=== PATIENT | male | born 1955 | race Caucasian/White ===

== ENCOUNTER → 2016-07-03 | Outpatient (CLI) | payer MEDICARE, MEDICAID ==
[~2016-07-03] MED LIST: ACYCLOVIR800 MG PO; ASPIRIN325 M1 PO; ATORVASTATIN CA40 MG PO; AUGMENTIN1 TA2 PO; BACTRIM DS 8001 TA1 PO; BENAZEPRIL HYDR40 MG PO; BENZOPRIL PO; CHLORTHALIDONE50 MG PO; CLOPIDOGREL75 M2 PO; CYCLOBENZ5 MG PO; DOXYCYCLINE HY100 M4 PO; GABAPENTIN300 MG PO; HYDROCODONE-APA1 TA1 PO; HYDROCODONE1 TABLET PO; LISINOPRIL HCTZ1 TAB PO; MEDROL 4MG. DOSE4 MG PO; MERREM IV1 GM IV; METOPROLOL25 MG PO; PERCOCET 5/3251 EACH PO; ROBITUSSIN120 ML/BOT PO; TALWIN NX1 TAB PO; TAMIFLU75 MG PO; VICODIN 7.5/501 EACH PO
--- NOTE | 2016-07-03 10:16 | CARDIOVASCULAR REPORT ---
"Cerebrovascular Exam Indications: TIA 434.91. CVA 436. PVD 433.9. 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 IMPRESSIONS 1. The bilateral vertebral arteries are patent with normal antegrade flow. 2. Study suggests 70-99% stenosis involving the left internal carotid artery. Disease progression from the study of 08-Sep-2014. 3. Study suggests 100% occlusion involving the right internal carotid artery. No change from the study of 09-Oct-2014. 4. Suggest further testing. History: Transient ischemic attack. Stroke. Risk factors: Hypertension. Labs, prior tests, procedures, and surgery: Bilateral lower extremity amputation (2008). Labs, prior tests, procedures, and surgery: Bilateral lower extremity amputation (2009). Carotid duplex study. Complete study and Doppler flow study including spectral analysis, color and stoddard scale imaging. Height: Height: 91.4cm. Height: 36in. Weight: Weight: 59.9kg. Weight: 131.7lb. Body mass index: BMI: 71.6kg/m^2. Body surface area: BSA: 1.31m^2. Location: Vascular laboratory. Patient status: Outpatient. Tables: Arterial flow: + +--------+--------+ |Location |V sys |V ed | + +--------+--------+ |Right CCA - proximal|98.2cm/s|25.1cm/s| + +--------+--------+ |Right CCA - distal |122cm/s |24.4cm/s| + +--------+--------+ |Right ECA |164cm/s |--------| + +--------+--------+ |Left CCA - proximal |67.7cm/s|21.6cm/s| + +--------+--------+ |Left CCA - distal |67cm/s |19.6cm/s| + +--------+--------+ |Left ECA |205cm/s |--------| + +--------+--------+ |Left ICA - proximal |52.5cm/s|14.7cm/s| + +--------+--------+ |Left ICA - mid |66.8cm/s|14.7cm/s| + +--------+--------+ |Left ICA - distal |142cm/s |39.3cm/s| + +--------+--------+ |Left vertebral |66.8cm/s|--------| + +--------+--------+ Velocity ratios: + + + + | |Left, V sys|Left, V ed| + + + + |Max ICA/dist CCA|2.12 |2.01 | + + + + (Report amended ) Electronically signed by: Gabe London [id number]"
--- NOTE | 2016-07-03 11:43 | RADIOLOGY REPORT PS360 ---
US RUQ-(ABD LTD)1ORGAN/QUAD/FU HISTORY: ABD PAIN, NAUSEA COMPARISON: None FINDINGS: PANCREAS: Unremarkable. No obvious mass or abnormal fluid collection. No ductal dilatation LIVER: No focal liver lesions demonstrated. Homogeneous echogenicity. No intrahepatic biliary ductal dilatation evident RIGHT KIDNEY: Unremarkable. Normal size and echogenicity. No hydronephrosis GALLBLADDER: No gallstones, gallbladder wall thickening, pericholecystic fluid, or biliary dilatation. IMPRESSION: Negative gallbladder/right upper quadrant ultrasound
== END ==
LOC: RAD 08:38
DX: R10.9 Unspecified abdominal pain (principal); R11.0 Nausea; G45.9 Transient cerebral ischemic attack, unspecified; R09.89 Other specified symptoms and signs involving the circulatory and respiratory systems

== ENCOUNTER → 2016-07-05 | Outpatient (CLI) | payer MEDICARE, MEDICAID ==
[2016-07-05 10:53] LABS: BUN 11 mg/dL (7-18); GFR (ESTIMATED) 86 ML/MIN (>60)
--- NOTE | 2016-07-06 10:21 | RADIOLOGY REPORT PS360 ---
CTA-NECK INDICATION: Carotid stenosis, abnormal duplex of the carotid arteries, many strokes. CAROTID STENOSIS COMPARISON: 11/02/2014 TECHNIQUE: Axial images are obtained following the bolus administration 100 mL of Isovue-370 contrast. Sagittal and coronal reformatted images are reviewed as well. 3-D reformats and curved planar reformatted images also reviewed. FINDINGS: Left carotid: Significant calcific plaque is present in the bulb and proximal left ICA. There is 50 percent stenosis of the proximal left ICA by NASCET criteria. This is not significant changed Right carotid: Prominent calcific plaque is present at the distal common carotid and bulb. There is 50% stenosis of the proximal right ICA. This is similar when compared to the previous exam. Atheromatous changes with calcification involves the cavernous and sellar portions of the ICAs bilaterally. Once again there is noted high-grade stenosis of the ostium of the left vertebral artery by approximately 60% similar to the previous exam. There is occlusion of the right vertebral artery. Nonvascular findings: There is an 11 mm cystic area along the posterior aspect of the base of the time. This is superficial. Correlation with direct visualization recommended. IMPRESSION: 1. Prominent calcific plaque involving the common carotids and bulbs and proximal ICAs bilaterally. 2. 50% stenosis of the proximal ICAs bilaterally not significantly changed. 3. Occluded right vertebral artery. High-grade stenosis left vertebral artery unchanged. 4. 11 mm cystic appearing lesion along the base of the tongue posteriorly. This is superficial and of questionable clinical significance. Direct visualization is recommended IMPRESSION:
== END ==
LOC: RAD 10:35
PROVIDERS: Thoracic Surgery (Cardiothoracic Vascular Surgery)
DX: I65.23 Occlusion and stenosis of bilateral carotid arteries (principal)
CPT/HCPCS: Q9967

== ENCOUNTER 2017-03-11 12:22 | Emergency (ER) | payer MEDICARE, MEDICAID ==
[~2017-03-11] VITALS: Ht 162.6 cm; Wt 59.0 kg
[2017-03-11] MEDS ORDERED: FLEXERIL10 MG PO (12:52)
[2017-03-11] MEDS ORDERED: TRAMADOL 50MG T50 M1 PO (12:53)
--- NOTE | 2017-03-11 13:04 | Urgent Treatment Center Report ---
History of Present Issue Date/Time Seen by Provider 03/11/17 1304 Visit Reason Pt arrived:Wheelchair Presenting Problem:PT REPORTS DIARRHEA X1 DAYS WITH LOWER ABD CRAMPING WITH NEEDING TO HAVE BM. WATERY DIARRHEA FOR 2 DAYS, TOOK 2 DOSES OF IMMODIUM TODAY. Location if Accident: Onset of symptoms date/time:03/10/17/ or onset unknown for:MEDICAL HX UNKNOWN Have you (or family members/close friends) recently traveled outside the [place]? N If Yes, where/when: Have you had exposure to infectious disease within the past month? TB? Other? Specify: Here w/ c/o diarrhea. Started yesterday. Approx 6 times today. Watery, light brown. No blood or mucous. Denies abdominal pain but then reports cramping immediatley before BMs then feels ok after. Normal appetite without nausea or vomiting "but everything I have eaten or drank is going straight through". Denies any recent travel or recent antibiotic use. Source patient, family Exam Limitations no limitations ALLERGIES Coded Allergies: sulfamethoxazole (From Bactrim) (Intermediate, 07/05/16) trimethoprim (From Bactrim) (Intermediate, 07/05/16) zolpidem (From Ambien) (PT STATES HE GOES CRAZY ON THIS MED 07/05/16) Home Medications Reported Medications Aspirin 81 MG PO DAILY Meropenem (Merrem) 1 GM IV EVERY 8 HOURS Metoprolol Tartrate (Metoprolol) 25 MG PO BID CLOPIDOGREL BISULFATE (Clopidogrel) 75 MG PO DAILY #30 Atorvastatin Calcium 40 MG PO DAILY #30 Gabapentin (Gabapentin 300MG) 400 MG PO TID Cyclobenzaprine Hcl (Flexeril) 5 MG PO BID TRAMADOL HCL (Tramadol) 50 MG PO QHS Benazepril Hcl (Benazepril HCl) 40 MG PO DAILY 30 Days History Medical History General CAD? No Angina: No [place]: No Hypertension? Yes Hyperlipidemia? No CHF? No DVT? No PE? No COPD? Yes Asthma? Yes Anemia? No GERD? No Gastric ulcers? No GI Bleed? No Hernia? No Thyroid Problems? No Hypothyroidism? No CVA? Yes Seizures? No Diabetes? No Insulin Dependent: No Insulin Pump: No Home FSBS? No Renal Insuffiency? No UTI? No Stones? No BPH? No GB Disease: No Nephritic Syndrome? No Asplenia? No Hepatitis? No Sickle Cell Disease? No Arthritis? No Migraines? No Cataracts? No Glaucoma? No MRSA? No HIV? No TB? No Anxiety? No Depression? No Cancer? No More? No Immunization HX DT/Tetanus 5-10 YRS Surgical Hx Previous Surgery?Y CYST REMOVED FROM GROIN X3 FEM POP RIGHT LEG X 2 GRAFT TO LEFT LEG ARTERY RIGHT BKA X 2 LT BKA Family History Family HX Diabetes No CAD Yes Hypertension Yes Hyperlipidemia Yes Cancer No TB No Social History Smoking Hx Smoker: Former Smoker Tobacco: No Packs/day < 1 Pack Alcohol Alcohol: No Review of Systems All Other Systems Reviewed and Negative Constitutional denies chills, denies fever, denies malaise Gastrointestinal see HPI Genitourinary denies: dysuria, frequency. Musculoskeletal denies other (no aches) Skin denies change in color, denies lesions Psychiatric/Neurological denies headache Physical Exam Vital Signs Vital Signs Date Time Temp Pulse Resp B/P Pulse O2 O2 Flow FiO2 Ox Delivery Rate 03/11 1249 97.8 92 18 135/73 96 03/11 1227 97.8 92 18 135/73 96 General Appearance no apparent distress, golden LE AKA, in w/c Ear, Nose, Throat normal pharynx Respiratory Status No: respiratory distress. Cardiovascular no peripheral edema Gastrointestinal non tender, soft, no organomegaly, no pulsatile mass, abnormal bowel sounds (hyperactive), no guarding, no rebound Back no CVA tenderness Neurologic alert, oriented x 3 Skin normal color, warm/dry Medical Decision Making LABS/Meds/Orders Pt receiving controlled substance in ED? No Departure Departure Time of Disposition 1324 Disposition DC Home or Self Care(routine) Clinical Impression Primary Impression: Diarrhea Qualifiers: Diarrhea type: unspecified type Qualified Code: R19.7 - Diarrhea, unspecified Condition STABLE Referrals Khalif VALENTINE,Nathaniel (Family) IMMEDIATELY for new or worsening symptoms OR no noticeable improvement over the next 48 hours. Patient Instructions DI for Viral Gastroenteritis -- Adult Additional Instructions * Monitor Temp. FU if fever develops. * Follow up immediately for new or worsening symptoms OR no noticeable improvement over the next 48 hours. * Increase fluids. Water, gatorade, powerade, juice OR pedialyte with limited formula/dairy in children. * No food is ok as long as you or your child is drinking. Once ready to eat, start bland. bananas, rice, applesauce, toast as they can help bulk up stool * If this is viral, Contagious until no diarrhea, vomiting, fever x 24 hours without medication * Avoid anti-diarrheals unless told otherwise. Best to let the virus run its course. * Return stool as directed since you are unable to provide specimen in clinic. Will take approx 2 hours to results. Call [facility] 2 hours after you drop it off to inquire on results. Our number is [phone]. If after 9pm tonight, follow up with Dr. pizano Discharge Counseling Counseled pt/family regarding diagnosis, home care, follow up needs at [phone]
[2017-03-11 13:31] VITALS: BP 135/73
== END 2017-03-11 13:35 | disposition home or self-care (01) ==
LOC: ER 12:22 → UTC 12:37 → ER 12:37 → UTC 13:35
DX: R19.7 Diarrhea, unspecified (principal); I10 Essential (primary) hypertension; J44.9 Chronic obstructive pulmonary disease, unspecified; Z87.891 Personal history of nicotine dependence; Z79.02 Long term (current) use of antithrombotics/antiplatelets; Z79.82 Long term (current) use of aspirin; Z79.899 Other long term (current) drug therapy

== ENCOUNTER 2017-05-10 09:58 | Emergency (ER) | payer MEDICARE, MEDICAID ==
[~2017-05-10] VITALS: Ht 152.4 cm; Wt 59.0 kg
[~2017-05-10 09:58] MED LIST changes: +FLEXERIL10 MG PO; +TRAMADOL 50MG T50 M1 PO
[2017-05-10] MEDS ORDERED: TRAZODONE50 MG PO (10:28)
--- OUTSIDE RECORDS SUMMARY | 2017-05-10 10:36 | External Medical Summary Rpt | CCD ---
Author Author , FAUSTINO HARMON Address Unknown Phone [email or web address] Care Team Providers Care Herb Doctor Name Role Phone Peter Farmer MD, Unavailable Unavailable Peter Farmer MD Purpose Continuity of Care Document - 09-20-2012 through 2016 Problems Code Diagnosis DOS Provider Status 729.81 729.81 09-20-2012 Werner SWELLING OF [facility] V49.75 V49.75 09-20-2012 [place] [facility]OW [facility] STATUS Allergies, Adverse Reactions, Alerts Type Drug Allergy Adverse Reaction to Substance Substance Reaction Severity Trimethoprim Unknown Intermediate Sulfamethoxazole Unknown Intermediate Zolpidem PT STATES HE GOES Unknown CRAZY ON THIS MED. Medications Na ND Rx Da Fi Fi Am Da Di Ph RX Ph St me C No te ll ll ou ys ag ar # ys at rm s nt no ma ic us Or Da si cy ia de te s n re d CE 00 03 0 No FT 78 -2 RI 19 3- Lo AX 32 20 ng ON 89 13 er E 5 1 Ac GM ti ve AL LI 63 03 0 No DO 32 -2 CA 30 3- Lo IN 20 20 ng E 11 13 er HC 0 L Ac 1% ti ve AL BU 55 03 0 No TO 39 -2 RP 00 3- Lo JULIAN 18 20 ng NO 40 13 er L 1 2 Ac MG ti /M ve L AL Vital Signs 10-11-2012 15:08 Name Value Interpretat Reference Comment ion Range Body 98.9 [degF] Temperature BP 78 mm[Hg] Diastolic BP Systolic 157 mm[Hg] Heart 92 /min Rate/Pulse O2% 96 % Respiratory 20 /min Rate 10-11-2012 15:07 Name Value Interpretat Reference Comment ion Range Body 98.9 [degF] Temperature BP 78 mm[Hg] Diastolic BP Systolic 157 mm[Hg] Heart 92 /min Rate/Pulse O2% 96 % Respiratory 20 /min Rate 09-20-2012 15:24 Name Value Interpretat Reference Comment ion Range BP 87 mm[Hg] Diastolic BP Systolic 157 mm[Hg] Heart 66 /min Rate/Pulse O2% 98 % Respiratory 20 /min Rate Encounters Encounter Start End Date Code Location Performer Type Date Emergency CATALINA Reynoso (ER) 3 14:39 3 15:10 [facility] Emergency CATALINA Farmer MD (ER) 3 15:01 3 15:25 [facility]
--- OUTSIDE RECORDS SUMMARY | 2017-05-10 10:36 | External Medical Summary Rpt | CCD ---
Author Author , FAUSTINO HARMON Address Unknown Phone [email or web address] Care Team Providers Care Divorce Mediator Name Role Phone Peter Farmer MD, Unavailable Unavailable Peter Farmer MD Purpose Continuity of Care Document - 09-20-2012 through 2016 Problems Code Diagnosis DOS Provider Status 729.81 729.81 09-20-2012 Werner SWELLING OF [facility] V49.75 V49.75 09-20-2012 [place] BELOW KNEE [facility] STATUS Allergies, Adverse Reactions, Alerts Type [...] CATALINA Reynoso (ER) 3 14:39 3 15:10 [facility] Emergency CATALINA Farmer MD (ER) 3 15:01 3 15:25 [facility]
--- OUTSIDE RECORDS SUMMARY | 2017-05-10 10:37 | External Medical Summary Rpt ---
Author Author FAUSTINO Silvestre, FAUSTINO Silvestre Organization [employer] Address Unknown Phone Unavailable
--- OUTSIDE RECORDS SUMMARY | 2017-05-10 10:37 | External Medical Summary Rpt | CCD ---
Author Author , FAUSTINO Organization [employer] Address Unknown Phone [email or web address] Immunization Name Date Rout CVX Reac Dose Comm Prov Is Faci e tion ent ider Refu lity Give sed n Infl 10-0 150 999 Hist D203 No D203 uenz 3-20 oric 45 45 a 16 al Quad Info Inj rmat ion - Sour ce Unsp ecif ied
--- OUTSIDE RECORDS SUMMARY | 2017-05-10 10:37 | External Medical Summary Rpt | CCD ---
Author Author [employer] Organization [employer] Address Unknown Phone Unavailable Purpose Continuity of Care Document - through 2016
--- OUTSIDE RECORDS SUMMARY | 2017-05-10 10:37 | External Medical Summary Rpt | CCD ---
Author Author , FAUSTINO Organization [employer] Address Unknown Phone [email or web address] Immunization Name Date Rout CVX Reac Dose Comm Prov Is Faci e tion ent ider Refu lity Give sed n Infl 10-0 150 999 Hist D203 No D203 uenz 3-20 oric 45 45 a 16 al Quad Info Inj rmat ion - Sour ce Unsp ecif ied
[2017-05-10] MEDS ORDERED: FLONASE 50 MCG16 GM (11:32)
[2017-05-10] MEDS ORDERED: BENZONATATE200 MG PO (11:32)
--- NOTE | 2017-05-10 11:33 | Urgent Treatment Center Report ---
History of Present Issue Date/Time Seen by Provider 05/10/17 1123 Visit Reason Pt arrived:Wheelchair Presenting Problem:HEAD COLD, RUNNY NOSE,SNEEZING, PAIN IN RIBS WHEN HE COUGHS NOW FOR 2 DAYS. BEEN TAKING CORICIDIN HP COUGH SYRUP AND HASN'T HELPED. Location if Accident: Onset of symptoms date/time:05/0802/18/800 or onset unknown for: Have you (or family members/close friends) recently traveled outside the [place]? N If Yes, where/when: Have you had exposure to infectious disease within the past month? N TB? Other? Specify: pt was waiting to be seen in ER bed 9 when he found out about UTC. He had not been seen yet in ER as he was still waiting to be seen. UTC was explained to pt and pt requested to transfer to [facility]. c/o "I have a cold". Rhinorrhea, nasal congestion, scratchy throat, dry cough x 2-3 days. typically improves w/ coricidin but hasn't this time. Denies fever, chills, SOA, wheezing. Ribs hurts at times "just from coughing so much". no pain with breathing or movement. w/ similiar symptoms. Source patient Exam Limitations no limitations ALLERGIES Coded Allergies: sulfamethoxazole (From Bactrim) (Intermediate, 07/05/16) trimethoprim (From Bactrim) (Intermediate, 07/05/16) zolpidem (From Ambien) (PT STATES HE GOES CRAZY ON THIS MED 07/05/16) Home Medications Reported Medications Aspirin 81 MG PO DAILY Metoprolol Tartrate (Metoprolol) 25 MG PO BID CLOPIDOGREL BISULFATE (Clopidogrel) 75 MG PO DAILY #30 Atorvastatin Calcium 40 MG PO DAILY #30 Trazodone Hcl (Trazodone HCl) 50 MG PO QPM #30 Gabapentin (Gabapentin 300MG) 400 MG PO TID Cyclobenzaprine Hcl (Flexeril) 5 MG PO BID TRAMADOL HCL (Tramadol) 50 MG PO QHS Benazepril Hcl (Benazepril HCl) 40 MG PO DAILY 30 Days History Medical History General CAD? No Angina: No UT: No Hypertension? Yes Hyperlipidemia? No CHF? No DVT? No PE? No COPD? Yes Asthma? Yes Anemia? No GERD? No Gastric ulcers? No GI Bleed? No Hernia? No Thyroid Problems? No Hypothyroidism? No CVA? Yes Seizures? No Diabetes? No Insulin Dependent: No Insulin Pump: No Home FSBS? No Renal Insuffiency? No UTI? No Stones? No BPH? No GB Disease: No Nephritic Syndrome? No Asplenia? No Hepatitis? No Sickle Cell Disease? No Arthritis? No Migraines? No Cataracts? No Glaucoma? No MRSA? Yes HIV? No TB? No Anxiety? No Depression? No Cancer? No More? Yes Additional hx: 2015- RIGHT BKA, 2009- LEFT BKA Immunization HX DT/Tetanus 5-10 YRS Surgical Hx Previous Surgery?Y CYST REMOVED FROM GROIN X3 FEM POP RIGHT LEG X 2 GRAFT TO LEFT LEG ARTERY RIGHT BKA X 2 LT BKA Family History Family HX Diabetes No CAD Yes Hypertension Yes Hyperlipidemia Yes Cancer No TB No Social History Smoking Hx Smoker: Former Smoker Tobacco: No Type Cigarettes Packs/day < 1 Pack Are you/the child exposed to second-hand smoke: Yes Alcohol Alcohol: No Review of Systems All Other Systems Reviewed and Negative Constitutional see HPI, denies malaise, denies weakness Eyes denies drainage ENT see HPI. denies: ear discharge, throat swelling, other (sneezing). Respiratory see HPI Cardiovascular denies chest pain, denies palpitations Gastrointestinal denies no symptoms reported Musculoskeletal denies joint pain Skin denies rash Psychiatric/Neurological denies headache Physical Exam Vital Signs Vital Signs Date Time Temp Pulse Resp B/P Pulse O2 O2 Flow FiO2 Ox Delivery Rate 05/10 1121 98.1 67 20 119/69 99 05/10 1005 98.1 67 20 119/69 99 General Appearance normal appearance (x/ golden BKA), no apparent distress Eye Exam - bilateral eye normal exam Ear, Nose, Throat normal pharynx, golden EAC and TMs normal, nasal congestion w/ clear rhinorrhea Neck non-tender, supple Respiratory Status Yes: trachea midline, chest symmetrical, non tender chest, non productive cough. No: respiratory distress, use of accessory muscles, pain on inspiration, pain on expiration, productive cough. Lung Sounds anterior: lungs clear. posterior: lungs clear. bilateral: lungs clear. Cardiovascular regular rate/rhythm, no peripheral edema, no murmur Neurologic alert, oriented x 3 Mental status normal mood/affect Skin normal color, warm/dry Lymphatic no adenopathy Medical Decision Making LABS/Meds/Orders Pt receiving controlled substance in ED? No Departure Departure Time of Disposition 1129 Disposition DC Home or Self Care(routine) Clinical Impression Primary Impression: Upper respiratory virus Condition STABLE Referrals Khalif VALENTINE,Nathaniel (Family) IMMEDIATELY for new or worsening symptoms OR no noticeable improvement over the next 48-72 hours. 911 for difficulty breathing or swallowing. Patient Instructions DI for Viral Upper Respiratory Infection -- Adult Additional Instructions * No sign of bacterial infection. Likely viral. Virus can take 7-14 days to run their course * Monitor Temp. Follow up if fevers begin * You said you are allowed to take advil. Advil as needed for aching due to cough. Follow up immediately for chest pain, pain with breathing, shortness of breath, wheezing or any worsening symptoms with your ability to breath. * Encourage fluids, water, gatorade, powerade, pedialyte if /toddler/child * warm salt water gargles * warm fluids * sore throat lozenges * sleep elevated * humidifier/vaporizer * flonase 2 sprays each nostril daily but may take 2-3 days to notice improvement with it. * Tessalon Perles as needed for cough as long as cough is dry. If cough becomes productive or chest congestion begins, stop tessalon and start mucinex. Discharge Counseling Counseled pt/family regarding diagnosis, medications/RX, home care, follow up needs Prescriptions Current Visit Scripts Fluticasone Propionate (Flonase 50 Mcg Nasal [place]) 2 SPRAY NA DAILY #1 BOT Benzonatate 200 MG PO BIDP PRN cough #14 SGL only as long as cough is dry, if productive, stop and start mucinex at [id number]
[2017-05-10 11:44] VITALS: BP 119/69
== END 2017-05-10 11:44 | disposition home or self-care (01) ==
LOC: ER 09:58 → UTC 10:32 → ER 10:32 → UTC 11:44
DX: J06.9 Acute upper respiratory infection, unspecified (principal); Z79.82 Long term (current) use of aspirin; I10 Essential (primary) hypertension; F17.210 Nicotine dependence, cigarettes, uncomplicated